=== PATIENT | male | born 1955 | race Caucasian/White ===

== ENCOUNTER → 2016-11-20 | Outpatient (CLI) | payer OTHER, MEDICARE ==
[~2016-11-20] MED LIST: ALBUAER2 INH; ASPI81TA28 PO; ATOR-22 PO; CEPH500C2 PO; CHOL1000 PO; DICL1GEL34 EX; DOXY1TAB6 PO; FAMO20TA11 PO; FLUT0.15; FLUT110A INH; LEVO50TA6 PO; LEVO75TA PO; LISI-789 PO; LORA-741 PO; METO25TA56 PO; MTR/400 PO; NICO14DI9 TOP; NTRGSL/4 UT; POLY335025 PO; PRED10TA PO; SENN-61 PO; VNTHFA/IN INH
--- NOTE | 2016-11-20 10:35 | DIAGNOSTIC IMAGING REPORT ---
CT OF THE CHEST WITHOUT IV CONTRAST CLINICAL HISTORY: Chronic obstructive pulmonary disease. COMPARISON STUDY: Chest radiograph January 24, 2016. CT DOSE: 306.73 mGycm TECHNIQUE: Axial images of the chest were obtained without IV contrast. Images were reviewed in the axial, sagittal, and coronal planes. IV contrast was not administered for this examination. FINDINGS: There are several calcified hilar lymph nodes. The size of the heart is normal. There are median sternotomy wires and postsurgical findings consistent with bypass grafting. There is no pericardial effusion. Subendocardial fat along the free wall of the left lateral ventricle suggests old infarct. No enlarged thoracic lymph nodes are present. There are minimal secretions within the trachea and right mainstem bronchus. There is moderate upper lobe predominant emphysema. No consolidation to suggest pneumonia is present. A few calcified granulomas are present. There is a 2.1 x 1.9 cm groundglass nodule within the right upper lobe on image 86 of 316. This is likely within the anterior aspect of the apical segment of the right upper lobe. No pneumothorax or pleural effusion is present. Lower lobe subpleural opacities suggest atelectasis. Bony thorax is unremarkable. There are calcified granulomas within the spleen. IMPRESSION: 1. 2.1 x 1.9 cm groundglass nodule within the right upper lobe. This suggests a neoplasm such as a low-grade adenocarcinoma. An infectious/inflammatory process could appear similar although is considered less likely. A short-term follow-up chest CT in 3 months could be obtained. 2. Moderate emphysema. 3. No thoracic lymphadenopathy. 4. 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 Electronically signed by: Hollis Borden M.D. 11/20/2016 10:34 AM Dictated Date/Time: 11/20/2016 10:20 AM
== END | disposition home or self-care (01) ==
LOC: C.CTS 10:00
PROVIDERS: ATTEND Physician Assistant
DX: J44.9 Chronic obstructive pulmonary disease, unspecified (principal); Z12.2 Encounter for screening for malignant neoplasm of respiratory organs; R91.8 Other nonspecific abnormal finding of lung field; J43.9 Emphysema, unspecified

== ENCOUNTER → 2017-02-19 | Outpatient (CLI) | payer OTHER, MEDICARE ==
--- NOTE | 2017-02-19 08:04 | DIAGNOSTIC IMAGING REPORT ---
(CHEST) THORAX WITHOUT CT DOSE: 250.75 mGy.cm HISTORY: R91.1 Lung nodule TECHNIQUE: Multiaxial CT images of the chest were performed without contrast. A dose lowering technique was utilized adhering to the principles of ALARA. COMPARISON: Chest CT 11/20/2016. FINDINGS: There are several calcified hilar lymph nodes. The size of the heart is normal. There are median sternotomy wires and postsurgical findings consistent with bypass grafting. There is no pericardial effusion. No hilar lymphadenopathy. Stable prominent mediastinal lymph nodes. There are minimal secretions within the trachea and right mainstem bronchus. There is moderate upper lobe predominant emphysema. No consolidation to suggest pneumonia is present. A few calcified granulomas are present. There is a 2.1 x 1.9 cm groundglass nodule within the right upper lobe on image 94 of 371. This remains unchanged. No pneumothorax or pleural effusion is present. No suspicious lytic or blastic osseous lesions. There is a stable 3 mm subpleural nodule within the right upper lobe on image 118.. There are calcified granulomas within the spleen. IMPRESSION: 1. 2.1 x 1.9 cm groundglass nodule within the right upper lobe. The stability is highly suggestive of a neoplasm such as a low-grade adenocarcinoma. Pulmonary/surgical consultation is recommended. Typically, these lesions do not demonstrate significant FDG uptake on PET/CT. 2. Moderate emphysema. 3. Stable prominent mediastinal lymph nodes. Electronically signed by: Ab Del Rio M.D. 02/19/2017 8:02 AM Dictated Date/Time: 02/19/2017 7:55 AM
== END | disposition home or self-care (01) ==
LOC: C.CTS 07:37
PROVIDERS: ATTEND Physician Assistant
DX: R91.1 Solitary pulmonary nodule (principal); J43.9 Emphysema, unspecified; R59.0 Localized enlarged lymph nodes

== ENCOUNTER → 2017-03-28 | Outpatient (CLI) | payer OTHER, MEDICARE ==
[~2017-03-28] MED LIST changes: -ALBUAER2 INH; -DOXY1TAB6 PO; -FAMO20TA11 PO; -FLUT110A INH; -LEVO50TA6 PO; -LISI-789 PO
--- NOTE | 2017-03-28 14:07 | DIAGNOSTIC IMAGING REPORT ---
CT OF THE CHEST WITHOUT IV CONTRAST CLINICAL HISTORY: Cough, shortness of breath. Lung nodule. COMPARISON STUDY: Chest CT February 19, 2017 and November 20, 2016. CT DOSE: 244.56 mGy.cm TECHNIQUE: Axial images of the chest were obtained without IV contrast. Images were reviewed in the axial, sagittal, and coronal planes. IV contrast was not administered for this examination. A dose lowering technique was utilized adhering to the principles of ALARA. FINDINGS: The 2.1 x 1.9 cm groundglass nodule within the right upper lobe is unchanged since initial CT of November 20, 2016. There are median sternotomy wires and postsurgical findings consistent with bypass grafting. Prominent mediastinal lymph nodes are present. There are no pathologically enlarged thoracic lymph nodes. There is no consolidation to suggest pneumonia. Moderate emphysema is present. No suspicious osseous lesion is present. Upper abdomen is unremarkable on this unenhanced exam with the exception of calcified granulomas within the spleen. IMPRESSION: 1. No change in the 2.1 x 1.9 cm groundglass nodule within the right upper lobe. This lesion is highly suggestive of a neoplasm such as a low-grade adenocarcinoma. 2. Moderate emphysema. 3. No pathologically enlarged thoracic lymph nodes. Electronically signed by: Hollis Borden M.D. 03/28/2017 2:05 PM Dictated Date/Time: 03/28/2017 1:48 PM
== END | disposition home or self-care (01) ==
LOC: C.CTS 13:01
PROVIDERS: ATTEND Internal Medicine Critical Care Medicine
DX: R91.1 Solitary pulmonary nodule (principal); J43.9 Emphysema, unspecified